=== PATIENT | male | born 1970 | race Caucasian/White ===

== ENCOUNTER 2019-07-05 08:12 | Emergency (ER) | payer OTHER ==
[~2019-07-05] VITALS: Ht 175.3 cm; Wt 74.8 kg
[2019-07-05 08:15] VITALS: BP 173/87
--- NOTE | 2019-07-05 08:21 | NUR ---
PT BIB [facility] TO ER BED 7
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
[2019-07-05 09:39] VITALS: BP 173/87
== END 2019-07-05 09:40 | disposition home or self-care (01) ==
LOC: MED 08:12
DX: S16.1XXA Strain of muscle, fascia and tendon at neck level, initial encounter (principal); R03.0 Elevated blood-pressure reading, without diagnosis of hypertension; V89.2XXA Person injured in unspecified motor-vehicle accident, traffic, initial encounter; Y93.89 Activity, other specified; Y92.89 Other specified places as the place of occurrence of the external cause; Y99.8 Other external cause status
CPT/HCPCS: 72040; 99283